=== PATIENT | male | born 1980 | race Caucasian/White ===

== ENCOUNTER 2023-12-16 20:51 | Emergency (ER) | payer SELFPAY ==
[~2023-12-16] VITALS: Ht 170.2 cm; Wt 67.1 kg
[2023-12-16 21:21] VITALS: O2SAT 98
[2023-12-17] MEDS: IBUPROFEN 600MG TABLET PO ONE (03:05)
[2023-12-17] MEDS ORDERED: IBUP-2029 MT (04:36)
[2023-12-17] MEDS ORDERED: CYCL10TA21 MT (04:36)
[2023-12-17 04:41] VITALS: BP 136/72; PULSE 74; RESP 16; TEMP 36.78072; O2SAT 98
== END 2023-12-17 04:42 | disposition home or self-care (01) ==
LOC: ER 20:51
DX: S80.02XA Contusion of left knee, initial encounter (principal); S30.0XXA Contusion of lower back and pelvis, initial encounter; V49.49XA Driver injured in collision with other motor vehicles in traffic accident, initial encounter; Y93.89 Activity, other specified; Y92.89 Other specified places as the place of occurrence of the external cause; Y99.8 Other external cause status
CPT/HCPCS: 72070; 73560; 99284